=== PATIENT | female | born 1980 | race Caucasian/White ===

== ENCOUNTER 2023-11-02 21:03 | Emergency (ER) | payer MEDICAID, SELFPAY | END 2023-11-02 21:54 | disposition left against medical advice (07) | PROVIDERS: Emergency Provider Emergency Medicine | DX: Z53.21 Procedure and treatment not carried out due to patient leaving prior to being seen by health care provider (principal); J45.909 Unspecified asthma, uncomplicated ==

== ENCOUNTER 2024-02-13 11:42 | Emergency (ER) | payer MEDICAID, SELFPAY ==
[2024-02-13 11:55] VITALS: BP 140/78; PULSE 73; RESP 19; TEMP 36.6; O2SAT 98; BMI 33.5
--- NOTE | 2024-02-13 11:55 | ED.GENADULT ---
HPI - General Adult General Chief complaint: General Medical Stated complaint: Med Refill? Time Seen by Provider: 02/13/24 11:56 Source: patient Mode of arrival: ambulatory Limitations: no limitations History of Present Illness ED Provider: Isidro HANSON narrative: Patient is a 43-year-old female presenting to the emergency department complaining of anxiety and withdrawal symptoms after being out of her medications for the past 3 days. [facility] she recently moved here from [place] and had refills initially, but realized a few days ago that she had no refills. [facility] she has scheduled a telehealth appointment with a new prescriber for the week of February 24. Was advised by that provider to obtain refills at the emergency department to cover her until that appointment. complaint: anxiety Onset (ago): day(s) Treatments prior to arrival: none Related Data Previous Rx's ?Medication ?Instructions ?Recorded bupropion HCl 150 mg 24 hr tablet, 150 mg PO QAM #14 tabs 02/13/24 extended release gabapentin 800 mg tablet 800 mg PO TID 2 weeks #42 tabs 02/13/24 quetiapine 25 mg tablet 25 mg PO BEDTIME #14 tabs 02/13/24 Allergies Allergy/AdvReac Type Severity Reaction Status Date / Time From [facility] AdvReac Unknown NAUSEA & Uncoded 02/13/24 11:56 VOMITING Review of Systems Review of Systems: As per HPI. Yes all other systems are reviewed and are negative Constitutional: Constitutional: Reports as per HPI [facility] Social History Social History Advance Directives: No Advance Directives Information Provided: No Physical Exam ED Vital Signs: Vital Signs - 24 hr 02/13/24 11:55 Temperature 98 F Pulse Rate 73 Respiratory Rate 19 Blood Pressure 140/78 H Pulse Oximetry 98 Oxygen Delivery Method Room Air BMI result Body Mass Index 33.5 Vital signs have been reviewed and appear to be correct. Blood pressure mildly elevated. Heart rate normal. Respiratory rate normal. Temperature normal. Oxygen saturation normal. Const General: cooperative, healthy appearing and no acute distress Orientation/consciousness: oriented to person, oriented to place, oriented to time and patient oriented x3 Limitations: no limitations HENMT Head: Yes normocephalic and Yes atraumatic Ears: external ears normal General nose exam: Normal external nose present Face and sinus: Yes face symmetric Mouth: oropharynx normal and moist mucous membranes Throat: Yes uvula midline Eyes Pupils: Equal, round and reactive pupils present Neck Neck: Yes normal visual inspection and Yes supple Resp Effort & Inspection: normal respiratory effort and able to speak in complete sentences Auscultation: clear to auscultation bilaterally Cardio Rate: regular rate Rhythm: regular rhythm Heart sounds: S1 normal heart sound present and S2 normal heart sound present GI Palpation (GI): Soft to palpation and nontender Auscultation: normoactive bowel sounds General: Yes no CVA tenderness Back/Spine/Pelvis Back: no CVA tenderness Skin General skin exam: elasticity normal and turgor normal Neuro General: oriented to person, oriented to place, oriented to time, patient oriented x3, moves all extremities, no focal motor deficits and CN's II-XI intact bilaterally Cranial nerves: Yes Equal, round and reactive pupils present Cognition (Neuro): normal cognition Extrem General: Yes full ROM, Yes no pedal edema and Yes no calf tenderness Psych Mental Status: mental status grossly normal Affect: normal affect Thought process: Normal thought process present Medical Decision Making Medical Decision Making [facility] Narrative: Patient is a 43-year-old female presenting to the emergency department complaining of anxiety and withdrawal symptoms after being out of her medications for the past 3 days. On exam patient is awake, A+Ox3, VS WNL, afebrile, normal neurological exam without focal deficits, physical exam findings as above. Given reported symptoms and physical exam findings, initial differential includes anxiety, medication withdrawal. Review of [employer] shows patient last filled her gabapentin on 01/15/2024 for a 30 day supply. Dose is consistent with what patient reports she has been taking. No concerns. Will provide patient with 2 week refills of gabapentin, seroquel and bupropion. Advised her to keep her appointment with her new therapist. Return precautions discussed. Patient verbalized understanding of and agreement with plan. Differential Diagnosis Differential Diagnoses: The differential diagnosis associated with the presentation includes As per [facility] External Record Review External record reviewed: Inpatient record, Office record and Outpatient record Prescription Management I considered prescription management with: Other Discharge Plan Discharge Clinical Impression: Drug withdrawal, Anxiety Patient Disposition: Home, Self-Care Instructions: Anxiety (ED) Additional Instructions: You presented to the emergency department today after running out of your medications. You are being prescribed a short course to get your through until you can see your new therapist. Please keep your scheduled appointment with them. Return to the emergency department with new or worsening symptoms. Prescriptions: New gabapentin 800 mg tablet 800 mg PO TID 14 Days Qty: 42 0RF bupropion HCl 150 mg tablet extended release 24 hr 150 mg PO QAM Qty: 14 0RF quetiapine 25 mg tablet 25 mg PO BEDTIME Qty: 14 0RF Print Language: Irish
[2024-02-13 13:38] VITALS: BP 140/78; PULSE 73; RESP 19; TEMP 36.6; O2SAT 98
== END 2024-02-13 12:30 | disposition home or self-care (01) ==
PROVIDERS: Emergency Provider Emergency Medicine Emergency Medical Services
DX: F19.930 Other psychoactive substance use, unspecified with withdrawal, uncomplicated (principal); F41.9 Anxiety disorder, unspecified; Z79.899 Other long term (current) drug therapy
CPT/HCPCS: 99282